=== PATIENT | female | born 1985 | race American Indian/Alaskan Native ===

== ENCOUNTER 2019-07-30 15:53 | Emergency (ER) | payer OTHER ==
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
[2019-07-30] MEDS ORDERED: ACETAMINOPHEN 325 MG TAB PO ONE (16:59)
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
[2019-07-30 18:26] VITALS: BP 114/53
== END 2019-07-30 19:05 | disposition home or self-care (01) ==
LOC: ED 15:53
DX: O26.891 Other specified pregnancy related conditions, first trimester (principal); R10.2 Pelvic and perineal pain; O99.511 Diseases of the respiratory system complicating pregnancy, first trimester; Z3A.08 8 weeks gestation of pregnancy; J45.909 Unspecified asthma, uncomplicated; V89.2XXA Person injured in unspecified motor-vehicle accident, traffic, initial encounter; Y93.89 Activity, other specified; Y92.410 Unspecified street and highway as the place of occurrence of the external cause; Y99.8 Other external cause status
CPT/HCPCS: 36415; 76801; 84702